=== PATIENT | male | born 1935 ===

== ENCOUNTER → 2018-06-08 13:22 | Outpatient (REF) | payer SELFPAY ==
[2018-06-08 13:38] LABS: INR 1.8 (0.9-1.3); Prothrombin Time 19.8 SECONDS (10.1-12.7)
== END ==
LOC: LAB 13:22
PROVIDERS: Visit Provider Internal Medicine
DX: I48.0 Paroxysmal atrial fibrillation (principal)
CPT/HCPCS: 85610

== ENCOUNTER → 2018-06-29 18:25 | Outpatient (REF) | payer SELFPAY ==
[2018-06-29 19:36] LABS: INR 2.9 (0.9-1.3); Prothrombin Time 31.5 SECONDS (10.1-12.7)
== END ==
LOC: LAB 18:25
PROVIDERS: Visit Provider Internal Medicine
DX: I48.0 Paroxysmal atrial fibrillation (principal)
CPT/HCPCS: 85610

== ENCOUNTER → 2018-07-20 13:15 | Outpatient (REF) | payer SELFPAY ==
[2018-07-20 13:42] LABS: INR 3.1 (0.9-1.3); Prothrombin Time 34.3 SECONDS (10.1-12.7)
== END ==
LOC: LAB 13:15
PROVIDERS: Visit Provider Internal Medicine
DX: I48.2 Chronic atrial fibrillation (principal)
CPT/HCPCS: 85610

== ENCOUNTER → 2018-08-10 13:17 | Outpatient (REF) | payer SELFPAY ==
[2018-08-10 13:53] LABS: INR 2.4 (0.9-1.3); Prothrombin Time 25.9 SECONDS (10.1-12.7)
== END ==
LOC: LAB 13:17
PROVIDERS: Visit Provider Internal Medicine
DX: I48.0 Paroxysmal atrial fibrillation (principal)
CPT/HCPCS: 85610

== ENCOUNTER → 2018-09-02 13:06 | Outpatient (REF) | payer SELFPAY ==
[2018-09-02 13:21] LABS: INR 3.2 (0.9-1.3); Prothrombin Time 34.8 SECONDS (10.1-12.7)
== END ==
LOC: LAB 13:06
PROVIDERS: Visit Provider Internal Medicine
DX: I48.0 Paroxysmal atrial fibrillation (principal)
CPT/HCPCS: 85610

== ENCOUNTER → 2018-09-23 13:24 | Outpatient (REF) | payer SELFPAY ==
[2018-09-23 13:57] LABS: INR 3.2 (0.9-1.3); Prothrombin Time 37.5 SECONDS (10.1-12.7)
== END ==
LOC: LAB 13:24
PROVIDERS: Visit Provider Internal Medicine
DX: I48.2 Chronic atrial fibrillation (principal)
CPT/HCPCS: 85610

== ENCOUNTER → 2018-10-14 13:10 | Outpatient (REF) | payer SELFPAY ==
[2018-10-14 13:32] LABS: INR 2.7 (0.9-1.3); Prothrombin Time 31.7 SECONDS (10.1-12.7)
== END ==
LOC: LAB 13:10
PROVIDERS: Visit Provider Internal Medicine
DX: I48.0 Paroxysmal atrial fibrillation (principal)
CPT/HCPCS: 36415; 85610

== ENCOUNTER → 2018-11-11 13:03 | Outpatient (REF) | payer OTHER, SELFPAY ==
[2018-11-11 13:52] LABS: PTT Partial Thromboplastin Tim 51 SECONDS (26.4-36.2)
== END ==
LOC: LAB 13:03
PROVIDERS: Visit Provider Internal Medicine
DX: I48.2 Chronic atrial fibrillation (principal)
CPT/HCPCS: 36415; 85730

== ENCOUNTER → 2018-11-16 14:07 | Outpatient (REF) | payer OTHER, SELFPAY ==
[2018-11-16 14:14] LABS: INR 2.8 (0.9-1.3); Prothrombin Time 33.3 SECONDS (10.1-12.7)
== END ==
LOC: LAB 14:07
PROVIDERS: Visit Provider Internal Medicine
DX: I48.0 Paroxysmal atrial fibrillation (principal)
CPT/HCPCS: 36415; 85610

== ENCOUNTER → 2018-12-21 16:11 | Outpatient (REF) | payer OTHER, SELFPAY ==
[2018-12-21 16:30] LABS: INR 2.7 (0.9-1.3); Prothrombin Time 32.2 SECONDS (10.1-12.7)
== END ==
LOC: LAB 16:11
PROVIDERS: Visit Provider Internal Medicine
DX: I48.0 Paroxysmal atrial fibrillation (principal)
CPT/HCPCS: 36415; 85610

== ENCOUNTER → 2019-01-25 14:40 | Outpatient (REF) | payer OTHER, SELFPAY ==
[2019-01-25 15:04] LABS: INR 1.8 (0.9-1.3); Prothrombin Time 21.2 SECONDS (10.1-12.7)
== END ==
LOC: LAB 14:40
PROVIDERS: Visit Provider Internal Medicine
DX: I48.0 Paroxysmal atrial fibrillation (principal)
CPT/HCPCS: 36415; 85610

== ENCOUNTER → 2019-02-08 15:24 | Outpatient (REF) | payer OTHER, SELFPAY ==
[2019-02-08 16:06] LABS: INR 2.5 (0.9-1.3); Prothrombin Time 29.3 SECONDS (10.1-12.7)
== END ==
LOC: LAB 15:24
PROVIDERS: Visit Provider Internal Medicine
DX: I48.0 Paroxysmal atrial fibrillation (principal)
CPT/HCPCS: 36415; 85610